=== PATIENT | male | born 1995 | race Hispanic/Latino ===

== ENCOUNTER 2018-01-19 23:09 | Emergency (ER) | payer OTHER ==
[2018-01-19 23:18] VITALS: BP 114/78
[2018-01-19] MEDS ORDERED: Sodium Chloride 0.9% 1,000 ML IV STA (23:29)
--- NOTE | 2018-01-19 23:31 | ED PDOC ---
HPI: General Adult Time Seen by Provider: 01/19/18 23:30 Chief Complaint (Nursing): Flu-like Symptoms Chief Complaint (Provider): cough/fever History Per: Patient (22 y/o male here for fever/cough x 1 day associated with temperature 103 and feeling unwell. States he has h/o Asthma and attempted coughing up material but unable. Notes yellowish sputum with coughing.) Past Medical History Reviewed: Historical Data, Nursing Documentation, Vital Signs Vital Signs: Last Vital Signs Temp 98.3 F 01/19/18 23:16 Pulse 101 H 01/19/18 23:16 Resp 20 01/19/18 23:16 BP 114/78 01/19/18 23:16 Pulse Ox 95 01/19/18 23:16 - Family History Family History: States: No Known Family Hx - Home Medications Home Medications: Ambulatory Orders Medication Instructions Recorded Albuterol HFA [Ventolin HFA 90 2 puff IH [id number] PRN #1 inhaler 01/20/18 mcg/actuation (8 g)] Azithromycin [Zithromax] 1 tab PO DAILY #6 tab 01/20/18 Promethazine/Codeine 5 ml PO Q12 PRN #100 ml 01/20/18 [Codeine/Promethazine 10 MG/5 Ml-6.25 MG/5 Ml] - Allergies Allergies/Adverse Reactions: Allergies Allergy/AdvReac Type Severity Reaction Status Date / Time No Known Allergies Allergy Verified 01/19/18 23:15 Review of Systems ROS Statement: Except As Marked, All Systems Reviewed And Found Negative Physical Exam - Reviewed Nursing Documentation Reviewed: Yes Vital Signs Reviewed: Yes - Physical Exam Appears: Positive for: Well, Non-toxic, No Acute Distress Head Exam: Positive for: ATRAUMATIC, NORMAL INSPECTION, NORMOCEPHALIC Skin: Positive for: Normal Color, Warm, DRY Eye Exam: Positive for: EOMI, Normal appearance, PERRL ENT: Positive for: Normal ENT Inspection Neck: Positive for: Normal, Painless ROM Cardiovascular/Chest: Positive for: Regular Rate, Rhythm Respiratory: Positive for: CNT, Normal Breath Sounds Gastrointestinal/Abdominal: Positive for: Normal Exam, Soft Back: Positive for: Normal Inspection Extremity: Positive for: Normal ROM Neurologic/Psych: Positive for: Alert, Oriented - ECG O2 Sat by Pulse Oximetry: 95 - Progress ED Course And Treament: cxr: no obvious pneumonia flu a/b neg rapid strep: neg Disposition - Clinical Impression Clinical Impression: Influenza-like symptoms - Patient ED Disposition Is Patient to be Admitted: No - Disposition Referrals: [facility] [Outside] Disposition: Routine/Home Disposition Time: 00:59 Condition: FAIR Prescriptions: Albuterol HFA [Ventolin HFA 90 mcg/actuation (8 g)] 2 puff IH [id number] PRN #1 inhaler PRN Reason: Cough Azithromycin [Zithromax] 1 tab PO DAILY #6 tab Promethazine/Codeine [Codeine/Promethazine 10 MG/5 Ml-6.25 MG/5 Ml] 5 ml PO Q12 PRN #100 ml PRN Reason: Cough Instructions: Acute Bronchitis Forms: [facility] ED School/Work Excuse
[2018-01-20 00:26] VITALS: PULSE 79; RESP 16; TEMP 98.5
[2018-01-20 01:02] VITALS: O2SAT 95
--- NOTE | 2018-01-20 08:40 | RAD ---
Date of service: 01/20/2018 HISTORY: routine COMPARISON: No prior. TECHNIQUE: Chest PA and lateral FINDINGS: LUNGS: No active pulmonary disease. PLEURA: No significant pleural effusion identified. No pneumothorax apparent. CARDIOVASCULAR: No aortic atherosclerotic calcification present. Normal cardiac size. No pulmonary vascular congestion. OSSEOUS STRUCTURES: No significant abnormalities. VISUALIZED UPPER ABDOMEN: Normal. OTHER FINDINGS: None. IMPRESSION: No active disease.
== END 2018-01-20 01:12 | disposition home or self-care (01) ==
LOC: H.ER 23:09
DX: J11.1 Influenza due to unidentified influenza virus with other respiratory manifestations (principal); Z79.899 Other long term (current) drug therapy